=== PATIENT | female | born 1960 | race Caucasian/White ===

== ENCOUNTER → 2023-02-27 13:05 | Outpatient (CLI) | payer BC, SELFPAY ==
--- NOTE | ~2023-02-27 | XR_ITS ---
EXAM: XR foot RT min 3V DATE: 02/27/2023 13:29 HISTORY: injury lateral foot pain . COMPARISON: None available. FINDINGS: Uncomplicated hardware fuses the medial cuneiform and proximal first tarsal. Uncomplicated fixation screws in the second metatarsal head. Decreased mineralization. No fracture or dislocation. No lytic or blastic lesion. Moderate degenerative change at the first MTP joint, likely with bunione ctomy changes. No erosion or periosteal change. Soft tissues within normal limits. IMPRESSION: Osteopenia. No acute osseous finding in the right foot. Reviewed, dictated and finalized at location K.
== END ==
PROVIDERS: PCP Emergency Medicine; Visit Provider Family Medicine
DX: S99.921A Unspecified injury of right foot, initial encounter (principal); M85.88 Other specified disorders of bone density and structure, other site
CPT/HCPCS: 73630

== ENCOUNTER → 2023-05-30 12:21 | Outpatient (CLI) | payer BC, SELFPAY ==
--- NOTE | ~2023-05-30 | DEXA_ITS ---
Bone Density Report Name: CALVIN MOSES Age: 62 Sex: Female Ethnicity: White Date of : 1960 Indication: postmenopausal; screening for osteoporosis; Referring Provider: SPIKE AMBRIZ Study: Bone densitometry was performed. Exam Date: May 30, 2023 Accession number: [id number] Bone Density: Region BMD T-score Z-score Classification AP Spine (L1-L4) 0.959 -0.8 0.7 Normal Femoral Neck (Left) 0.737 -1.0 0.4 Normal Total Hip (Left) 0.789 -1.3 -0.2 Osteopenia Femoral Neck (Right) 0.643 -1.9 -0.5 Osteopenia Total Hip (Right) 0.799 -1.2 -0.1 Osteopenia Total Hip Mean 0.794 -1.3 -0.2 Osteopenia World Health Organization criteria for BMD impression classify patients as: Normal (T-score at or above -1.0), Osteopenia (T-score between -1.0 and -2.5), or Osteoporosis (T-score at or below -2.5). 10-year Fracture Risk(1): Major Osteoporotic Fracture 8.0% Hip Fracture 1.7% Reported Risk Factors: [place] (), Neck BMD=0.643, BMI=18.1, smoking (1) FRAX(R) Version 3.08. Fracture probability calculated for an untreated patient. Fracture probability may be lower if the patient has received treatment. Clinical Information Provided by Patient: Smokes Patient maximum height was 65 Menopause Age: 51 Drinks caffeinated beverages Onset of menses at age 15 Number of children 1 Impression: The patient has low bone mass, based on the Right Femoral Neck T-score. The patient has an estimated ten-year risk of hip fracture of 1.7% and an estimated ten-year risk of major fracture of 8%, based on the WHO FRAX algorithm. The patient has risk factors, including: smoking. Discussion: BONE DENSITY IS LOW AT ONE OR MORE SKELETAL SITES. This patient's lowest T-score is low at one or more skeletal sites. It meets the World Health Organization's (WHO) criteria for ?low bone mass? (T-score between -1.0 and -2.5). The patient's 10-year risk of fracture as calculated by FRAX is less than the threshold where pharmacological therapy is recommended by the National Osteoporosis Foundation (NOF). However, all treatment decisions require clinical judgment and consideration of individual patient factors, including patient preferences, comorbidities, previous drug use, risk factors not captured in the FRAX model (e.g., frailty, falls, vitamin D deficiency, increased bone turnover, interval significant decline in bone density) and possible under or overestimation of fracture risk by FRAX. The patient should follow a healthful lifestyle (good nutrition with adequate calcium and vitamin D, and appropriate weight-bearing exercise). Follow-Up: Consider repeating this study in 2 to 3 years to reassess this patient's status, or sooner if there is some new clinical indication. Reported by: [facility] on 05/30/2023 12:48:00 PM.
== END ==
PROVIDERS: PCP Family Medicine; Visit Provider Family Medicine
DX: Z13.820 Encounter for screening for osteoporosis (principal); M85.9 Disorder of bone density and structure, unspecified; Z78.0 Asymptomatic menopausal state
CPT/HCPCS: 77080

== ENCOUNTER 2024-06-12 13:33 | Outpatient (CLI) | payer BC, SELFPAY ==
--- NOTE | ~2024-06-12 | XR_ITS ---
3 VIEWS LUMBAR SPINE Ordering provider: Sha Soria MD History: . M54.9 - Dorsalgia, unspecified . Comparison: None. FINDINGS: VERTEBRAL BODIES:Minimal anterolisthesis at the level of L4-L5. Otherwise, No visible fracture or king bluxation. DISK SPACES: Narrowing of the disc L4-L5. SOFT TISSUES: Vascular calcifications. IMPRESSION: No acute osseous abnormality lumbar spine. Reviewed, dictated and finalized at location A.
--- NOTE | ~2024-06-12 | XR_ITS ---
[id number] Ordering provider: Sha Soria MD History: . M54.2 - Cervicalgia . Comparison: None. FINDINGS: VERTEBRAL BODIES: Minimal anterolisthesis at the level of C3-C4. Degenerative changes of the spine. O therwise, Normal height and alignment. No visible fracture or subluxation. The dens is intact. DISK SPACES: Narrowing of the disc C4-C5, and C5-C6. Multilevel uncovertebral joint osteoarthritic ch anges. PARASPINOUS SOFT TISSUES: Bilateral carotid calcifications. No prevertebral soft tissue swelling. IMPRESSION: No acute osseous abnormality cervical spine. Minimal anterolisthesis at the level of C3-C4. Reviewed, dictated and finalized at location A.
== END 2024-06-12 13:34 | disposition home or self-care (01) ==
LOC: MICIMG 13:34
PROVIDERS: PCP Emergency Medicine; Visit Provider Emergency Medicine
DX: M54.2 Cervicalgia (principal); Z87.828 Personal history of other (healed) physical injury and trauma; M47.817 Spondylosis without myelopathy or radiculopathy, lumbosacral region; M54.9 Dorsalgia, unspecified
CPT/HCPCS: 72040; 72110

== ENCOUNTER 2024-06-15 13:48 | Outpatient (CLI) | payer BC, SELFPAY ==
--- NOTE | ~2024-06-15 | CT_ITS ---
EXAMINATION:CT lung screening DATE: 06/15/2024 14:11 INDICATION: Personal history of nicotine dependence. Current smoker with 40 pack year history. TECHNIQUE: Computed tomography (CT) of the chest was performed without intravenous contrast. Automate d exposure control and iterative reconstruction technique were employed. The dose-length product (DLP ) was 63.20 mGy-cm. COMPARISON: Chest CT 11/13/2011 FINDINGS: There is mild scarring at right lung apex. There is mild emphysema. There is mild atelectas is bilaterally. No pleural effusion. The heart size is normal. There are coronary artery calcificatio ns. No pericardial effusion. There are calcifications of the aortic valve. There is diffuse hepatic s teatosis. There is liver surface nodularity, consistent with cirrhosis. There is moderate thoracic sp ondylosis. IMPRESSION: 1. . Lung-RADS category 2S: Benign appearance or behavior. Continue annual screening with noncontrast low-dose chest CT in 12 months. 2. Cirrhosis of the liver. Reviewed, dictated and finalized at location A. IMPRESSION: 1. . Lung-RADS category 2S: Benign appearance or behavior. Continue annual scre ening with noncontrast low-dose chest CT in 12 months. 2. Cirrhosis of the liver.
== END 2024-06-15 13:49 | disposition home or self-care (01) ==
PROVIDERS: PCP Emergency Medicine; Visit Provider Emergency Medicine
DX: Z12.2 Encounter for screening for malignant neoplasm of respiratory organs (principal); Z87.891 Personal history of nicotine dependence; K74.60 Unspecified cirrhosis of liver
CPT/HCPCS: 71271

== ENCOUNTER 2025-02-23 12:22 | Outpatient (CLI) | payer BC, SELFPAY ==
--- NOTE | ~2025-02-23 | US_ITS ---
US arterial ankle brachial ind INDICATION: Polyneuropathy TECHNIQUE: Segmental pressures and plethysmographic and Doppler waveforms of the brachial and lower e xtremity arteries were obtained. COMPARISON: No prior studies for comparison. FINDINGS: Right and left brachial artery pressures of 138 mm Hg and 134 mm Hg, respectively, are concordant (no rmal difference <= 30 mmHg). The right ankle-brachial index (DYANA) is 1.13 (normal >= 0.9-1.0). The right great toe-brachial index (TBI) is 0.52 (normal >= 0.60). The left DYANA is 1.01. The left TBI is 0.54. IMPRESSION: 1. Diminished bilateral toe brachial indices, consistent with mild peripheral arterial disease. Reviewed, dictated and finalized at location A. IMPRESSION: 1. Diminished bilateral toe brachial indices, consistent with mild peripheral a rterial disease.
--- OUTSIDE RECORDS SUMMARY | 2025-02-23 12:25 | XMS_ITS | Referral Summary ---
Author Organization [facility] [address] [facility] Address [address] [place] [address] Care Team Providers Care Belting Inspector Name Role Phone Sha Soria MD Primary Care Provider [phone] Allergies Active Allergy Reactions Criticality Noted Date Comments Sulfa (Sulfonamide Antibiotics) Hives Medium 05/01/2019 Reaction: Hives, , Hives Sulfanilamide Medications aspirin 81 mg enteric coated tablet Take 81 mg by mouth daily Active loratadine (CLARITIN) 10 mg tablet Take 10 mg by mouth daily Active sertraline (ZOLOFT) 50 mg tablet 4 Active lisinopriL (PRINIVIL,ZESTR IL) 40 mg tablet 4 Active sertraline (Zoloft) 50 mg tablet Active lisinopriL (PRINIVIL,ZESTR IL) 40 mg tablet Active azelastine (ASTELIN) 137 mcg (0.1 %) nasal spray Administer 1 spray into each nostril 2 (two) times a day Use in each nostril as directed 30 mL 3 4 Active fluticasone propionate (FLONASE) 50 mcg/actuation nasal spray Administer 2 sprays into each nostril daily 48 mL 3 4 Active Active Problems Patient Care Coordination No te Formatting of this note migh t be different from the original. 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 Right lower quadrant abdominal pain 05/12/2015 Lichen sclerosus et atrophicus 05/12/2015 History of major abdominal surgery 02/13/2014 Overview (01/02/2017): S/P left colectomy Benign hypertension 02/13/2014 Overview (01/02/2017): BENIGN HYPERTENSION Multiple-type hyperlipidemia 02/13/2014 Overview (01/02/2017): MIXED HYPERLIPIDEMIA Depression 02/13/2014 Overview (01/02/2017): DEPRESSIVE DISORDER NEC Anxiety state 02/13/2014 Overview (01/02/2017): ANXIETY STATE NOS Tobacco dependence syndrome 02/13/2014 Overview (01/04/2017): Tobacco use disorder Hernia of anterior abdominal wall 12/30/2013 Atherosclerosis of coronary artery 09/15/2013 Hypertension 09/15/2013 Incisional hernia 09/01/2013 Overview (01/04/2017): Incisional hernia Eczema 10/05/2011 Valgus deformity of great toe 07/04/2011 Hammer toe 07/04/2011 Immunizations Immunization Administration Dates Next Due Influenza, Split 07/25/2012,2011, 0 Influenza, Trivalent, Cell C ulture-based MDCK, Preservative Free, Antibiotic Free, Intramuscular 08/18/2015 Influenza, Trivalent, IM (MDV) 06/30/2013,2007 Pneumococcal Polysaccharide PPV23 09/30/2010 Tdap 10/21/2012 Social History Tobacco Use Types Packs/Day Years Used Date Smoking Tobacco: Every Day Cigarettes 1 30 Smokeless Tobacco: Never Alcohol Use Standard Drinks/Week Comments Yes 0 (1 standard drink = 0.6 oz pur e alcohol) AUDIT-C Answer Date Recorded Frequency of Alcohol Consumption 2-3 times a wee k 02/18/2019 Average Number of Drinks 3 or 4 019 Frequency of Binge Drinking Less than monthly Comments Unknown Sex and Gender Information Value Date Recorded Sex Assigned at Not on file 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 Gender Identity Not on file Sexual Orientation Not on file Occupation Industry Job Start Date Job End Date Unemployed Not on file Not on file Not on file Last Filed Vital Signs Vital Sign Reading Time Taken Comments Blood Pressure 161/99 05/01/2019 7:25 AM CDT Pulse 70 05/01/2019 7:25 AM CDT Temperature 36.7 C (98.1 F) 05/01/2019 7:25 AM CDT Respiratory Rate - - Oxygen Saturation 98% 05/01/2019 7:25 AM CDT Inhaled Oxygen Concentration - - Weight 55.3 kg (122 lb) 06/08/2019 8:58 AM CDT Height 167.6 cm (5' 6) 06/08/2019 8:58 AM CDT Body Mass Index 19.69 06/08/2019 8:58 AM CDT Plan of Treatment Not on file Procedures Procedure Name Priority Date/Time Associated Diagnosis Comments SCREENING MAMMOGRAM BILATERAL W ADRIANO Schedule Routine, Read Routine (OP Routine) 03/20/2024 1:12 PM CDT Screening mammogram, encounter for COLONOSCOPY REPORT 06/01/2015 from Last 3 Months or Most Recently Relevant to Health Maintenance Results * Screening Mammogram Bilateral W Adriano (03/20/2024 1:12 PM CDT) Anatomical Region Laterality Modality Breast Bilateral Mammography Narrative 03/23/2024 4:25 PM CDT Mammogram Technique: Bilateral Digital Breast Tomosynthesis, Bilateral C-view 2D Screening mammogram. Views obtained: bilateral craniocaudal and bilateral mediolateral oblique. Computer Aided Detection was performed. Mammogram Findings: The present examination has been compared to prior imaging studies performed at [facility] on 07/26/2018, 08/07/2018 and 02/18/2023. There are scattered areas of fibroglandular density. There is no suspicious abnormality in either breast. Impression: There is no mammographic evidence of malignancy. Annual screening mammography is recommended. OVERALL FINAL ASSESSMENT: BI-RADS CATEGORY 1: Negative. Procedure Note Staci Lopez MD - 03/23/2024 Mammogram Technique: Bilateral Digital Breast Tomosynthesis, Bilateral C-view 2D Screening mammogram. Views obtained: bilateral craniocaudal and bilateral mediolateral oblique. Computer Aided Detection was performed. Mammogram Findings: The present examination has been compared to prior imaging studies performed at [facility] on 07/26/2018, 08/07/2018 and 02/18/2023. There are scattered areas of fibroglandular density. There is no suspicious abnormality in either breast. Impression: There is no mammographic evidence of malignancy. Annual screening mammography is recommended. OVERALL FINAL ASSESSMENT: BI-RADS CATEGORY 1: Negative. us Self Screening Mammogram IMG MAMMO PROCEDURES Fi nal Result * COLONOSCOPY REPORT (06/01/2015) Anatomical Region Laterality Modality Other Narrative 06/01/2015 Ordered by an unspecified provider. Historical Provider MD [facility] PROCEDURE ORDERABLES F inal Result from Last 3 Months or Most Recently Relevant to Health Maintenance [place] Care Teams Belting Inspector Relationship Specialty Start Date End Date Sha Soria MD [address] [place] [address] [place] [address] PCP - General Family Medicine 03/03/24
--- OUTSIDE RECORDS SUMMARY | 2025-02-23 12:25 | XMS_ITS | Clinical Summary ---
Author Organization [facility] [address] [facility] Address [address] [place] [address] Care Team Providers Care Extractor Machine Operator Name Role Phone Sha Soria MD Primary Care Provider [phone] Allergies Active Allergy Reactions Criticality Noted Date [...] 06/30/2013,2007 Pneumococcal Polysaccharide PPV23 09/30/2010 Tdap 10/21/2012 Surgical History Surgery Date Site/Laterality Comments OTHER SURGICAL HISTORY Myocardial infarction: stentx2 RCA OTHER SURGICAL HISTORY Ulcerative colitis: Drug therapy OTHER SURGICAL HISTORY h/o AL: dr brennan OTHER SURGICAL HISTORY 09/30/2013 - 09/29/2014 s/p incisional hernia repair OTHER SURGICAL HISTORY diverticulitis: s/p sigmoid colon resection CARDIAC CATHETERIZATION HERNIA REPAIR Medical History Medical History Date Comments Myocardial infarction (HCC) 2003 Myoc ardial infarction Ulcerative colitis (HCC) 2010 Ulcerat chris colitis Hx Other Medical h/o [place] Hypertension Hypertension Hyperlipidemia Hyperlipidemia Hx Other Medical 2013 partial colecto my Hx Other Medical diverticulitis Hiatal hernia Nosebleed Ear problems Family History Medical History Relation Name Comments Colitis Father Colitis; Other Father Alive and well; Coronary artery disease Maternal Grandfather Coronary artery disease; Colon cancer Maternal Grandmother Cancer -colon; Cancer Mother Ms Hyperlipidemia Mother Ms high choleste rol; /Hyperlipidemia; Hypertension Mother Ms Hypertension; Other Mother Ms Alive and well; Colon cancer Other Family history of Cancer -colon; Hyperlipidemia Sister 1 Sis high choleste rol; Hypertension Sister 2 Sis 1 Hypertension; Relation Name Status Comments Father Alive Maternal Grandfather Maternal Grandmother Mother Ms Alive Other Sister 1 Sis Sister 2 Sis 1 Social History Tobacco Use Types Packs/Day Years [...] on file 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 Gender Identity Not on file Sexual Orientation Not on file Occupation Industry Job Start Date Job End Date Unemployed Not on file Not on file Not on file Obstetrics History Last Filed Vital Signs Vital Sign Reading [...] 06/08/2019 8:58 AM CDT Plan of Treatment Health Maintenance Due Date Last Done Comments Cervical Cancer Screening 1960 Depression Screening 1960 Hepatitis C Screening 1961 Hepatitis B Screening 1979 Regular Well Visit/Exam 18-64 1979 Lung Cancer Screening 2011 Zoster Vaccine (1 of 2) 2011 Pneumococcal vaccine <65 (2 of 2 - PCV) 09/30/2011 09/30/2010 DTaP/Tdap/Td Vaccine (2 - Td or Tdap) 10/21/2022 10/21/2012 Breast Cancer Screening-Mammogram 03/20/2025 03/20/2024, 02/18/2023, 07/26/2018, Additional history exists Influenza Vaccine (Season Ended) 2025 07/07/2019, 08/18/2015, 08/17/2015, Additional history exists Colon Cancer Screening-Colonoscopy 06/01/2025 06/01/2015 Colon Cancer Screening-CT Colonography Discontinued 06/01/2015 Colon Cancer Screening-DNA Stool Discontinued 06/01/20 Colon Cancer Screening-FIT Discontinued 06/01/2015 Colon Cancer Screening-Sigmoidoscopy Discontinued 06/01/2015 Procedures Procedure Name Priority Date/Time Associated Diagnosis [...] compared to prior imaging studies performed at [facility] on 07/26/2018, 08/07/2018 and 02/18/2023. There are [...] compared to prior imaging studies performed at [facility] on 07/26/2018, 08/07/2018 and 02/18/2023. There are [...] Narrative 06/01/2015 Ordered by an unspecified provider. us Historical Provider MD [facility] PROCEDURE ORDERABLES F inal Result from Last 3 Months or Most Recently Relevant to Health Maintenance [place] Care Teams Extractor Machine Operator Relationship Specialty Start Date End Date Sha Soria MD [address] [place] [address] [place] [address] PCP - General Family Medicine 03/03/24
--- OUTSIDE RECORDS SUMMARY | 2025-02-23 12:25 | XMS_ITS | Encounter Summary ---
Author Organization [facility] Address [address] [facility] [place] [address] Care Team Providers Care Atomic Fuel Assembler Name Role Phone Unavailable Primary Care Provider Unavailabl e Encounter Details Date Type Department Care Team (Late st Contact Info) Description 10/17/2020 Lab Requisition [facility] [address] [facility] [place] [id number] Keke Ruggiero MD [address] [facility] [address] [place] [address] Social History Tobacco Use Types Packs/Day Years Used Date Smoking Tobacco: Never Assessed Comments Unknown Sex and Gender Information Value Date Recorded Sex Assigned at Not on file Legal Sex Female 1:43 PM RESEARCH ENVIRONMENTAL ENGINEER Gender Identity Not on file Sexual Orientation Not on file documented as of this encounter Plan of Treatment Not on file documented as of this encounter Procedures Procedure Name Priority Date/Time Associated Diagnosis Comments DERMATOPATHOLOGY Routine 10/13/2020 3:27 AM RESEARCH ENVIRONMENTAL ENGINEER documented in this encounter Results * DERMATOPATHOLOGY (10/13/2020 3:27 AM RESEARCH ENVIRONMENTAL ENGINEER) Case Report Dermatopathology Report Case: [id number] Authorizing Provider: Keke Ruggiero MD Collected: 10/13/2020 03:27 AM Ordering Location: [facility] Received: 10/17/2020 10:38 AM Pathologist: Radha Holloway MD Specimen: Skin, supra pubic 1 2:54 PM RESEARCH ENVIRONMENTAL ENGINEER DERMATOPATHOLOGY LABORATORY Final Diagnosis Specimen A. SKIN, supra pubic: SEBORRHEIC KERATOSIS, INFLAMED (L82.0) 1 2:54 PM RESEARCH ENVIRONMENTAL ENGINEER DERMATOPATHOLOGY LABORATORY at 1454 RESEARCH ENVIRONMENTAL ENGINEER Clinical History R/O brown crusted papule, ISK vs SCC. 1 2:54 PM RESEARCH ENVIRONMENTAL ENGINEER DERMATOPATHOLOGY LABORATORY Gross Description Specimen A: Received is one formalin filled container labeled with the patient's name and designated supra pubic. The specimen consists of a shave measuring [id number]. Jar 0+. 1 2:54 PM RESEARCH ENVIRONMENTAL ENGINEER DERMATOPATHOLOGY LABORATORY Microscopic Description Specimen A. SKIN, supra pubic: There is hyperkeratosis, parakeratosis, papillomatosis, and acanthosis of the epidermis. There is a lymphohistiocytic infiltrate within the papillary dermis that is focally lichenoid. 1 2:54 PM [facility] DERMATOPATHOLOGY [facility]ORATORY Disclaimer An external and internal positive and negative controls are appropriate for the histochemical, immunohistochemical and immunofluorescence stain(s) in this case (if any), except where stated explicitly. The performance characteristics of the stain(s) cited in this report were developed and its performance characteristic determined by the Dermatopathology Laboratory at [facility], directed by Dr. London Holloway. These tests need not be, and therefore are not, approved by the [place] Food and Drug Administration. The tests are used for clinical purposes. Billing Codes Specimen Charges Stain Charges 85201 1 1 2:54 PM RESEARCH ENVIRONMENTAL ENGINEER DERMATOPATHOLOGY LABORATORY Embedded Images 1 2:54 PM [facility] DERMATOPATHOLOGY [facility]ORATORY Pathology/Cytolo gy TISSUE SPECIMEN FROM SKIN / Unknown 10/13/2020 3:27 AM RESEARCH ENVIRONMENTAL ENGINEER 10/17/2020 10:38 AM RESEARCH ENVIRONMENTAL ENGINEER us Keke Ruggiero MD LAB - PATHOLOGY/CYTOLOGY ORD ERABLES Final Result DERMATOPATHOLOGY LABORATORY [facility] Department of Dermatology [address] [place] [address], [facility] [phone] documented in this encounter Visit Diagnoses Not on filedocumented in this encounter
--- OUTSIDE RECORDS SUMMARY | 2025-02-23 12:25 | XMS_ITS | Clinical Summary ---
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 Gender Identity Not on file Sexual Orientation Not on file Plan of Treatment Health Maintenance Due Date Last Done Comments Hepatitis C Virus (HCV) Screening 1960 TdaP Immunization 1961 Pap Smear 1982 Cervical Cancer Screening (CCS) 1991 HPV/Cotest 1991 Colonoscopy 2006 Colorectal Cancer Screening 2006 Cologuard 2011 Immunochemical Fecal Occult Blood 2011 Mammogram 2011 Pneumococcal Immunization (50+ years) (1 of 1 - PCV) 2011 Influenza Immunization (#1) 2024 100 09/2019, 07/07/2019, 08/17/2015, Additional history exists SARS-COV-2 Immunization ( - 2023- season) 2024 Respiratory Syncytial Virus (RSV) Immunization (Adult) (1 - 1-dose 75+ series) 2036 Zoster Immunization Completed 07/22/2020, Hepatitis B Immunization Aged Out No longer eligible based on patient's age to complete this topic Meningococcal Immunization (ACWY) Aged Out No longer eligible based on patient's age to complete this topic Pneumococcal Immunization Combined Aged Out No longer eligible based on patient's age to complete this topic Rotavirus Immunization Aged Out No lo nger eligible based on patient's age to complete this topic
--- OUTSIDE RECORDS SUMMARY | 2025-02-23 12:25 | XMS_ITS | Clinical Summary ---
Author Organization [facility] Address [address] [place] [address] Care Team Providers Care Road Tester Name Role Phone Unavailable Primary Care Provider Unavailabl e Source Comments [facility],non-owned Affiliates and Associated Physician Practices is amultiple site organization consisting of ambulatory clinics and hospital sitesin [place], [place], [place] and [place]. This disclosure is being madepursuant to the Care Everywhere program and may not contain all information available regarding this patient. 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 Gender Identity Not on file Sexual Orientation Not on file Plan of Treatment Health Maintenance Due Date Last Done Comments COLOGUARD (AGES 45-75) - COL ON CA SCREENING 1961 COLON MONITORING 1961 COLONOSCOPY - COLON CA SCREENING 1961 CT COLONOGRAPHY - COLON CA SCREENING 1961 Colorectal Cancer Screening 1961 FIT - COLON CA SCREENING 1961 FLEX SIG - COLON CA SCREENING 1961 LIPID TESTING 1961 MAMMOGRAM 1961 HIV SCREENING 1976 HEPATITIS C SCREENING 08/12/1979 DTAP/TDAP/TD VACCINES (1 - Tdap) 1980 PNEUMOCOCCAL VACCINE 50+ (1 of 1 - PCV) 2011 ZOSTER VACCINE (1 of 2) 2011 COVID-19 VACCINE ( - 2023-2 5 season) 2024 DEPRESSION SCREENING 09/30/2024 INFLUENZA VACCINE (Season Ended) 2025 Respiratory Syncytial Virus (RSV) Vaccine Pt: or over 60 yrs (1 - 1-dose 75+ series) 2036 HEPATITIS B VACCINE Aged Out No longe r eligible based on patient's age to complete this topic HIB VACCINE Aged Out No longer eligi ble based on patient's age to complete this topic HPV VACCINE Aged Out No longer eligi ble based on patient's age to complete this topic MENINGOCOCCAL (Group B) VACC INE SHARED DECISION-MAKING Aged Out No longer eligibl e based on patient's age to complete this topic MENINGOCOCCAL GROUPS A/C/Y/W VACCINE Aged Out No longer eligible b ased on patient's age to complete this topic Insurance
--- OUTSIDE RECORDS SUMMARY | 2025-02-23 12:26 | XMS_ITS | Data Portability ---
Author Organization [facility], Sun Address [address] [place] [address] Assessment Encounter Date Assessment Date Assessment LastModified by Organization Details LastModified Time 08/04/2024 08/04/2024 Annual gynecological exam performed. Patient will come back in a year unless there are new symptoms. [email or web address] Not available 08/04/2024 14:20:45 Plan of Treatment Reminders Order Date Submit Date Provider Last Modified By Organization Details Last Modified Time Details Appointments None recorded. Lab None recorded. Referral None recorded. Procedures None recorded. Surgeries None recorded. Imaging None recorded. Medication Orders estradiol 0.01% (0.1 mg/gram) vaginal cream 2023 024 [id number], [address], [place], [id number], 14:56:27 Patient TargetsNo targets recorded. Patient InstructionsNo instructions recorded. Reason for Referral None Reported. Results Created Date Observation Date Name Description Value Unit Range Abnormal Flag Note LastModifiedBy Organization Detail LastModifiedTime 08/04/2008/04/2024 [facility]AB [facility], OLIVIA bacterial vaginosis (bv), tma Negati ve negati ve Not Available [facility] (Lab) [address] [place], [address], 08/05/2024 15:00:18 08/04/20 24 08/04/2024 [facility] SWAB PL[facility], OLIVIA cam species, tma Negati ve negati ve Not Available [facility] (Lab) [address] [place], [address], 08/05/2024 15:00:18 08/04/20 24 08/04/2024 [facility] H SWAB PLUS, OLIVIA cam glabrata, tma Negati ve negati ve Not Available [facility] (Lab) [address] [place], [address], 08/05/2024 15:00:18 08/04/20 24 08/04/2024 [facility], OLIVIA trichomonas vaginalis, tma Negati ve negati ve Not Available [facility] (Lab) [address] [place], [address], 08/05/2024 15:00:18 08/04/20 24 08/04/2024 [facility], OLIVIA chlamydia trachomatis, PCR Negati ve negati ve Not Available [facility] (Lab) [address] [place], [address], 08/05/2024 15:00:18 08/04/20 24 08/04/2024 [facility], OLIVIA neisseria gonorrhoeae, PCR Negati ve negati ve Bacte rial vagin osis detec ts the follo wing bacte marilyn assoc iated with bacte rial vagin osis (BV): Lacto bacil birdie (L. gasse ri, L. crisp atus and L. jense german), Gardn erell a vagin tamar, and Atopo bium vagin ae. A singl e quali tativ e resul t is repor susana base on instr ument softw are to deter mine BV posit chris or negat chris statu s. The Itzel da speci es group tests for C. albic ans, C. tropi calis , C. parap ofe is, C. dubli ni is. Testi ng is perfo rmed using the Trans cript ion Media susana Ampli ficat ion metho d. Tests for Itzel da glabr danial, Trich omona s vagin tamar, Chlam ydia trach omati s, and Neiss karenia christy black e are also inclu ded in this panel . Not Available [facility] (Lab) [address], [place], [address], 08/05/2024 15:00:18 08/04/20 24 08/04/2024 IMAGE GUIDE D PAP AND HPV REGAR DLESS image guided Pap, HPV regardless of Pap result SEE RESULT S BELOW CASE REPOR T: Cytol ogy Gynec ologi stewart Repor t Case: [id number] Autho risheilan g Provi philomena: Vanda Latif MD Colle cted: 08/04 1450 Order ing Locat ion: [place] [facility] Recei antonia: 08/05 1141 First Raisa n: Demetria Dorsey, CT Speci men: Raisa spring Pap - Image d, Cervi x STATE MENT OF ADEQU ACY: Satis facto ry for evalu ation Trans forma tion zone compo nent charlene williamsonu ring infla mmati on prese nt. ----- ----- ----- ----- ----- ----- ----- ----- ----- ----- ----- ----- ----- ----- ----- ----- ----- ---- FINAL DIAGN OSIS: Negat chris for Intra epith elial Edvin christie or Thierno cardoso (NIL) . Elect jayme yeager d by Demetria Dorsey CT on 08/11 at 12:02 PM ----- ----- ----- ----- ----- ----- ----- ----- ----- ----- ----- ----- ----- ----- ----- ----- ----- ---- HPV RESUL TS: HPV mRNA E6/E7 : No HPV mRNA Detec susana NOTE: This high risk HPV mRNA assay detec ts fourt een high- risk HPV types (16, 18, 31, 33, 35, 39, 45, 51, 52, 56, 58, 59, 66, 68) witho ut diffe renti ation . COMME NT: This speci men was revie wed by a Cytot echno logis t and/o r Patho logis t (as indic ated in this repor t) after evalu ation using the Thinp rep Imagi ng Syste m. CLINI STEWART INFOR MATIO N: Menst rual Statu s: LMP (if appli cable ): Clini stewart Histo ry/Pr eviou s Pap: Type of Neopl judith (if appli cable ): Signi fican t Clini stewart Findi ngs: Other Histo ry: Hormo jame (if appli cable ): PAP EDUCA TAVO L NOTE: The Pap Test is a scree saw test with an inher ent false negat chris rate. Liqui d-bas ed sampl ing may decre ase, but will not elimi lynnette, false negat chris resul ts. A negat chris resul t does not precl ude the prese nce and/o r devel opmen t of disea se, since the prese nce of abnor mal cells in the sampl e depen ds on the locat ion of the lesio n and sampl ing techn ique. Desean nued regul ar scree saw is the best metho d of cance r preve ntion . If repor susana cytol ogic findi ng do not corre late with physi stewart and/o r histo rical findi ngs, furth er inves tigat ion is recom kristyn d, as clini melo wolf nted. Not Available [facility] (Lab) [address], [place], [address], 08/11/2024 13:06:58 Result Notes None recorded. Procedures Surgical History Date Name Laterality Status Provider Name and Address Organization Details Recorded Time 07/31/20 24 Date of Last Pap Smear completed Judy Anderson [facility] 08/04/2024 14:24:48 06/14/20 24 Date of Last Mammogram completed [facility] 08/04/2024 14:25:39 Breast Biopsy completed [facility] 08/04/2024 14:19:33 Cholecystectomy completed [facility] 08/04/2024 14:19:33 procedure on foot completed [facility] 08/04/2024 14:27:13 Imaging Results None recorded. Procedure Notes None recorded. Medical Equipment None Reported. Allergies Allergen ID Allergen Name Allergen Category Reaction Reaction Severity Criticality Documentation Date Start Date Code Code System Note Provider Name and Address Organization Details Recorded Time 96873 Substance with sulfonami de structure and antibacte rial mechanism of action (substanc e) medicatio n Not available Not available Not available 08/04/2024 12338 8003 SNOMED [facility] 14:24:20 Medications Name Sig Start Date Stop Date Status Note LastModified by Organization Details LastModified Time amoxicillin 500 mg capsule 08/04 completed Not Available Not Available Not Available valacyclovir 1 gram tablet active Not Available Not Available Not Available amoxicillin 600 mg-potassium clavulanate 42.9 mg/5 mL oral suspension active Not Available Not Available N ot Available prednisone 20 mg tablet 08/04 completed Not Available Not Available Not Available amoxicillin 875 mg tablet 08/04 completed Not Available Not Available Not Available triamcinolon e acetonide 0.1 % dental paste active Not Available Not Available Not Available cephalexin 500 mg capsule active Not Available Not Available Not Available azelastine 137 mcg (0.1 %) nasal spray active Not Available Not Available Not Available estradiol 0.01% (0.1 mg/gram) vaginal cream Insert 1 g 3 times a week by vaginal route 2024 active Not Available Not Available Not Avai lable methylpredni solone 4 mg tablets in a dose pack active Not Available Not Available No t Available albuterol sulfate HFA 90 mcg/actuatio n aerosol inhaler active Not Available Not Available Not Available lisinopril 40 mg tablet active Not Available Not Available Not Available fluticasone propionate 50 mcg/actuatio n nasal spray,suspen virgen active Not Available Not Available Not Available sertraline 50 mg tablet active Not Available Not Available Not Available amoxicillin 875 mg-potassium clavulanate 125 mg tablet 08/04 completed Not Available Not Available Not Available nitrofuranto in monohydrate/ macrocrystal s 100 mg capsule active Not Available Not Available Not Available sertraline 08/04 completed Not Available Not Available Not Available lisinopril active Not Available Not Av ailable Not Available Vitals Date Recorded Body weight Body mass index (BMI) Body height Systolic And Diastolic Provider Name and Address Organization Details Last Updated DateTime 08/04/2024 21743.35 g 18.1 kg/m2 167.64 cm 130/81 mm[Hg] Judy Anderson [facility] 08/04/2024 14:24:05 Social History Question Answer Notes LastModified by Organizat ion Details LastModified Time Do You Have An Advance Directive? No [email or web address] Information n ot available 08/04/2024 How Many Years Have You Consumed Alcohol? 21 [email or web address] Information not available 08/04/2024 Are You Blind Or Do You Have Difficulty Seeing? No [email or web address] Information not available 08/04/2024 What Is Your Level Of Caffeine Consumption? Moderate Information not available 08/04/2024 How Much Tobacco Do You Chew? None [email or web address] Information not available 08/04/2024 In The 14 Days Before Symptom Onset, Have You Had Close Contact With A Laboratory-confirme d COVID-19 While That Case Was Ill? No [email or web address] Information n ot available 08/04/2024 In The 14 Days Before Symptom Onset, Have You Had Close Contact With A Person Who Is Under Investigation For COVID-19 While That Person Was Ill? No [email or web address] Information not available 08/04/2024 Have You Been To An Area Known To Be High Risk For COVID-19? No [email or web address] Information not available 08/04/2024 Are You Deaf Or Do You Have Serious Difficulty Hearing? No [email or web address] Information not available 08/04/2024 What Type Of Diet Are You Following? REGULAR [email or web address] Information n ot available 08/04/2024 What Is The Highest Grade Or Level Of School You Have Completed Or The Highest Degree You Have Received? [id number] [email or web address] Information not available 08/04/2024 Are There Any Guns Present In Your Home? Yes [email or web address] Information not available 08/04/2024 Do You Use Protection During Sex? No [email or web address] Information not available 08/04/2024 Do You Use Your Seat Belt Or Car Seat Routinely? Yes [email or web address] Information not available 08/04/2024 Do You Have Smoke And Carbon Monoxide Detectors In Your Home? Yes [email or web address] Information not available 08/04/2024 At What Age Did You Start Smoking Tobacco? 31 [email or web address] Information not available 08/04/2024 How Much Tobacco Do You Smoke? 1 PPD [email or web address] Information not available 08/04/2024 Do You Use Sunscreen Routinely? No [email or web address] Information not available 08/04/2024 How Many Years Have You Smoked Tobacco? 36 [email or web address] Information not available 08/04/2024 Have You Used IV Drugs? No Information not available 08/04/2024 Sex: Unknown Functional Status Question Answer Note LastModified by Organizat ion Details LastModified Time Do you use any illicit or recreational drugs? No [email or web address] Information not available 08/04/2024 What is your level of alcohol consumption? Occasional [email or web address] Information not available 08/04/2024 Are you able to walk? 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 Occasional [email or web address] Information not available 08/04/2024 Mental Status Question Answer Note LastModified by Organization D etails LastModified Time Do you feel stressed (tense, restless, nervous, or anxious, or unable to sleep at night)? [id number] [email or web address] Information not available 08/04/2024 Family History Relationship Description Onset Age of this Age Resolved Age Notes LastModified by Organization Details LastModified Time Father Heart disease [email or web address] Not available 2023 14:19:33 Sister Malignant tumor of breast [email or web address] Not available 2023 14:26:50 Medical History Condition Response No Past Medical History Y Gynecological History Statement/Question Response Date of Last Mammogram 06/14/2024 Date of LMP 08/03/2024 STIs/STDs N Was last menstrual period normal Y HPV Vaccine N Duration of Flow (days) 5 Current Control Method None If Post Menopausal, Age at Menopause 51 Frequency of Cycle (Q days) 30 Sexually Active? Y Age of first menstrual cycle 13 Date of Last Pap Smear 07/31/2024 Obstetrics History GPAL:G 1 P 0 1 0 1 Type Value Premature 1 Living 1 Total 1 Past Encounters Encounter ID Performer Location Encounter Start Date Encounter Closed Date Diagnosis/Indication Diagnosis SNOMED-CT Code Diagnosis ICD10 Code Diagnosis Note [id number] BRITTNEY CURTIS MD Sun [address] [address] 08/04/2024 14:13:04 08/04/2024 14:57:55 Vaginal dryness 79088551 N89.8 - reports dryness and pain with sex- no improvemen t with crisco- will try estrogen cream and monitor response Gynecologi c examination 49543269 Z01.419 Well woman care- Cervical cancer screening: Pap smear obtained today, will follow up on the results with the patient as they become available- Breast cancer screening: mammogram completed- HPV immunizati on: does not qualify- STD testing: declined- hereditary cancer screening: does not qualify for testing Health Concerns Section Related Observation LastModified by Organization Detai ls LastModified Time None Recorded Concern Status LastModified by Organization Details LastModified Time None Recorded Advance Directives Directive N: Payers Encounter Date Sequence Insurance Name Policy Number Policy [place] Covered Member ID [place] Member ID Guarantor Name 08/04/2024 1 [employer] [id number] Akua Cagle [id number] Akua Cagle Notes Date Note Type Note Provider Name and Address Organization Details Recorded Time 08/04/2024 text/html Presents today for her annual well-woman exam. Denies abnormal vaginal discharge. She is sexually active and reports insertional dyspareunia. She has not noticed any changes or masses in her breasts. Up to date on mammograms. Menopausal, no PMB. Hx of abnormal pap smears, ASCUS last year with normal colpo. Having vaginal dryness, has tried crisco without improvement. Does have some postcoital bleeding due to dryness. BRITTNEY CURTIS MD [address], [place], [address], [place] [facility] 08/04/2024 14:56:38 OBGyn Episode Ob Episode Information Episode Created Date Number of Fetuses Patient Bloodtype Patient rh Status Prepregnancy Weight lbs Domestic Partner Domestic Partner Phone Father Name Channel Rougher Status 08/04/20 24 1 CLOSED Fetus Data First Name Last Name Admitted to NICU Weight (g) Sex Living Outcome Pediatric Complications Fetus ID Race Codes Race Delivery Type M Prematur e [id number] Vaginal Delivery Mahesh Calculation Initial Mahesh Date Initial Exam Date Initial Exam Provider Initial Ultrasound Date Last Menstrual Period Date Ultra Sound Weeks Gestation 0 Eighteen To Twenty Week Mahesh Update Ultra Sound Date Fundal Height At Umbil Quickening Date Ultra Sound Latest Weeks Gestation Final Mahesh Confirmed By Final Mahesh Confirmed Date Final Mahesh Date Ultra Sound Latest Days Gestation 0 0 Menstrual History Last Menstrual Date Menses Monthly On Bcp Conception Prior Menses Frequency Hcg Plus Date Menarche Onset Age Delivery Information Delivery Date Delivery Type Labor Anesthesia Weeks Gestation Incision Type Labor Labor Length Hrs Delivered By Post Complications Tubal Sterilization Discharge Date Comments 2 Discharge Information Feeding Method Contraceptive Method Maternal HG B and HCT Levels
== END 2025-02-23 12:23 | disposition home or self-care (01) ==
LOC: CHSIMG 12:23
PROVIDERS: PCP Family Medicine; Visit Provider Family Medicine
DX: R09.89 Other specified symptoms and signs involving the circulatory and respiratory systems (principal); G62.9 Polyneuropathy, unspecified
CPT/HCPCS: 93922